=== PATIENT | male | born 1980 | race Caucasian/White ===

== ENCOUNTER 2022-07-17 14:29 | Emergency (ER) | payer MEDICAID ==
[~2022-07-17] VITALS: Ht 165.1 cm; Wt 95.3 kg
[2022-07-17 14:37] VITALS: BP 122/75
--- NOTE | 2022-07-17 14:41 | NUR ---
PT IN ROOM 6. AT BEDSIDE.
--- NOTE | 2022-07-17 14:45 | NUR ---
PT BIB [place] C/O SEIZURE HX SZ S/P AT [facility] AT BEDSIDE, PT AAOX4 NO TRAUMA NOTED, NSR W/O ECT
--- NOTE | 2022-07-17 14:49 | NUR ---
42YR OLD MALE BIB EMS C/O SZ. PATIENT IN CUSTODY WAS AT COURT HOUSE WHEN SZ OCCURRED. TWO SZ 15 MINS APART. PT IS A&OX4. 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 SM ABRASION TO BACK OF HEAD . PT WAS ASSISSTED TO FLOOR BY LAW ENFORCEMENT DURING SZ. SKIN WARM AND DRY. SPO2 98% RA. HOB ELEVATED. BED AT LOWEST POSITION. PT IS CUFFED TO BED NKDA SZ
[2022-07-17] MEDS ORDERED: NACL 0.9% 1,000 ML IV ONE (15:10)
--- NOTE | 2022-07-17 15:16 | NUR ---
LAB AT BEDSIDE
--- NOTE | 2022-07-17 17:04 | NUR ---
BLOOD COLLECTED AT BEDSIDE. NO IV ACCESS. DR JAQUEZ AWARE.
[2022-07-17 17:12] LABS: CARBON DIOXIDE 26.2 mmol/L (21-32); PHOSPHORUS 2.7 mg/dL (2.5-4.9); TOTAL BILIRUBIN 0.6 mg/dL (0.0-1.0)
[2022-07-17 17:19] LABS: BASOPHILS # (AUTO) 0.1 K/uL (0.00-0.22); BASOPHILS % (AUTO) 0.6 % (0.0-2.0); EOSINOPHILS # (AUTO) 0.1 K/uL (0-0.4); EOSINOPHILS % (AUTO) 0.4 % (0.0-4.0); HEMOGLOBIN 14.9 g/dL (12.0-18.0); LYMPHOCYTES # (AUTO) 2.3 K/uL (2.0-11.5); LYMPHOCYTES % (AUTO) 17.3 % (20.5-51.1); MEAN CORPUSCULAR HEMOGLOBIN 30 pg (27-31); MEAN CORPUSCULAR HGB CONC 35 g/dL (33-37); MEAN CORPUSCULAR VOLUME 87.7 fL (80-94); MONOCYTES # (AUTO) 0.7 K/uL (0.8-1.0); MONOCYTES % (AUTO) 5.8 % (1.7-9.3); NEUTROPHILS # (AUTO) 9.9 K/uL (1.8-7.7); NEUTROPHILS % (AUTO) 75.9 % (42.2-75.2); PLATELET COUNT (AUTO) 252 K/uL (140-450); RED CELL DISTRIBUTION WIDTH 13.8 % (11.6-13.7)
--- NOTE | 2022-07-17 17:46 | NUR ---
PT RESTING RESP EVEN AND UNLABORED. NO DISTRESS NOTED. 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
[2022-07-17 17:47] LABS: ANION GAP 11.9 (8-16); POTASSIUM 4.1 mmol/L (3.5-5.1)
[2022-07-17 18:37] VITALS: BP 122/72
--- NOTE | 2022-07-17 18:37 | NUR ---
Patient discharged with v/s stable. Written and verbal after care instructions given and explained. Patient verbalized understanding. Wheel Chair Assisted with in custody. All questions addressed prior to discharge. Advised to follow up with PMD.
--- NOTE | 2022-07-17 18:56 | NUR ---
Chart checked and completed. The patient's care was reviewed and supervised by Massiel Caballero RN.
== END 2022-07-17 18:37 ==
LOC: MED 14:29
DX: R56.9 Unspecified convulsions (principal); F41.9 Anxiety disorder, unspecified
CPT/HCPCS: 36415; 70450; 80053; 83735; 84100; 85025; 99284